=== PATIENT | male | born 1995 | race Caucasian/White ===

== ENCOUNTER 2020-10-10 12:30 | Outpatient (CLI) | payer OTHER | END 2020-10-10 23:59 | disposition home or self-care (01) | LOC: COV 12:30 | PROVIDERS: ATTEND Family Medicine | DX: R50.9 Fever, unspecified (principal); Z20.822 Contact with and (suspected) exposure to COVID-19 ==

== ENCOUNTER 2022-07-18 12:49 | Outpatient (CLI) | payer OTHER ==
--- NOTE | 2022-07-18 10:58 | XRAY Report ---
PROCEDURE: Finger(s) LT INDICATIONS: RING FINGER CONTUSION TECHNIQUE: AP hand, 2 views of the fourth finger(s) acquired. COMPARISON: None FINDINGS: Bones: There is a potential chip fracture seen along the ulnar aspect of the proximal portion of the distal phalanx. No additional fractures or dislocations. No suspicious bony lesions. Soft tissues: No suspicious soft tissue calcifications. IMPRESSION: Potential chip fracture seen of the fourth finger distally. Reviewed by: Gallo Rivero MD on 07/18/2022 9:57 AM [facility] Approved by: Gallo Rivero MD on 07/18/2022 9:57 AM [facility] Station ID: [id number]
== END 2022-07-18 12:50 | disposition home or self-care (01) ==
LOC: DI.S 12:49
PROVIDERS: ATTEND Emergency Medicine
DX: S60.042A Contusion of left ring finger without damage to nail, initial encounter (principal)

== ENCOUNTER 2024-03-17 13:35 | Emergency (ER) | payer OTHER ==
[2024-03-17 13:43] VITALS: O2SAT 100
--- NOTE | 2024-03-17 16:10 | ED Physician Documentation ---
PD HPI UPPER EXT INJURY - Stated complaint Stated Complaint: LT HAND FB - Chief complaint Chief Complaint: Ext Problem - History obtained from History obtained from: Patient - History of Present Illness Location: Left (Right-handed gentleman with unknown tetanus status works for the [employer] and got a splinter in his left middle finger a couple of days ago.) PD PAST MEDICAL HISTORY - Past Medical History Past Medical History: No - Past Surgical History Past Surgical History: No - Allergies Allergies/Adverse Reactions: Allergies Allergy/AdvReac Type Severity Reaction Status Date / Time No Known Drug Allergies Allergy Verified 03/17/24 13:39 - Social History Does the pt smoke?: No Smoking Status: Never smoker Does the pt drink ETOH?: No Does the pt have substance abuse?: No - Immunizations Immunizations are current?: No PD ED PE NORMAL - Vitals Vital signs reviewed: Yes - General General: Alert and oriented X 3, No acute distress - Extremities Extremities: Other (There is a linear janine on the dorsum of the left middle finger over the mid phalanx that could be consistent with a subcutaneous splinter. Full range of motion.) Results - Vitals Vitals: Vital Signs - 24 hr 03/17/24 03/17/24 13:39 16:55 Temperature 36.5 C Heart Rate 66 80 Respiratory 18 18 Rate Blood Pressure 127/89 H 126/82 H O2 Saturation 100 100 Procedures - General procedure General procedure: The left middle finger was blocked with bupivacaine with excellent anesthesia then sterilely prepped and draped. There was kind of a linear janine under the skin where there was a presumed splinter and an incision was made over this and there were little bits of wood but no specific splinter. These were removed and then was irrigated and dressed. Departure - Departure Disposition: 01 Home, Self Care Clinical Impression: Foreign body (FB) in soft tissue Condition: Good Record reviewed to determine appropriate education?: Yes Instructions: ED Foreign Body Soft Tissue Removed Comments: As discussed, there is no specific splinter there today but there was kind of some wood fragments that were very small I think it will improve at this point, you can wash with soap and water and keep it covered with a Band-Aid. Return if worse. Forms: PCP List Discharge Date/Time: 03/17/24 16:55
[2024-03-17] MEDS: TETANUS/DIPHTHERIA/PERTUSSIS 0.5 ML SYRINGE IM ONE (16:19)
[2024-03-17 16:57] VITALS: BP 126/82
== END 2024-03-17 16:55 | disposition home or self-care (01) ==
LOC: ED 13:35
DX: S60.453A Superficial foreign body of left middle finger, initial encounter (principal); W45.8XXA Other foreign body or object entering through skin, initial encounter
CPT/HCPCS: 10120; 90471; 99283